=== PATIENT | female | born 1995 ===

== ENCOUNTER 2025-05-27 09:00 | Day surgery (SDC) | payer OTHER ==
[2025-05-27] MEDS ORDERED: DIPHENHYDRAMINE HCL 50 MG/ML VIAL 1ML IV ONE ×2 (13:00)
[2025-05-27] MEDS ORDERED: fentaNYL CITRATE 50 MCG/ML AMPUL IV PUSH ONE (13:00)
[2025-05-27] MEDS ORDERED: MIDAZOLAM HCL 2 MG/2 ML VIAL IV ONE (13:00)
== END 2025-05-27 14:15 | disposition home or self-care (01) ==
LOC: AMB-ENDOS 09:00
PROVIDERS: ATTEND Internal Medicine
DX: K63.5 Polyp of colon (principal); D12.4 Benign neoplasm of descending colon